=== PATIENT | female | born 1975 | race Caucasian/White ===

== ENCOUNTER 2016-10-26 15:48 | Emergency (ER) | payer OTHER ==
[~2016-10-26] VITALS: Ht 172.7 cm; Wt 99.8 kg
[~2016-10-26 15:48] MED LIST: LEVO150T8 PO; PHEN30TA40
[2016-10-26 17:40] LABS: BASOPHILS # (AUTO) 0.1 /CMM (0.0-0.2); DIFF TOTAL % 100 %; EOSINOPHILS # (AUTO) 0.7 /CMM (0.0-0.7); EOSINOPHILS % (AUTO) 9.3 % (0.0-6.0); HEMATOCRIT 31 % (33-45); HEMOGLOBIN 10.1 g/dL (11.5-14.8); LYMPHOCYTES # (AUTO) 2.3 /CMM (0.8-4.8); LYMPHOCYTES % (AUTO) 28.3 % (20.0-44.0); MEAN CORPUSCULAR HEMOGLOBIN 25 PG (26.0-33.0); MEAN CORPUSCULAR HGB CONC 32 g/dl (31.0-36.0); MEAN CORPUSCULAR VOLUME 77 fL (82-100); MONOCYTES # (AUTO) 0.5 /CMM (0.1-1.30); NEUTROPHILS # (AUTO) 4.4 /CMM (1.8-8.9); NEUTROPHILS % (AUTO) 55.4 % (43.0-81.0); PLATELET COUNT (AUTO) 287 /CMM (150-450); RED BLOOD CELL COUNT(AUTO) 4.07 MIL/uL (4.0-5.2)
[2016-10-26 17:42] LABS: ADD UA MICROSCOPIC YES; KETONES,URINE Trace (NEGATIVE); LEUKOCYTE ESTERASE ,URINE Negative (NEGATIVE); PH,URINE 5.5 (5.0-8.0)
[2016-10-26 17:43] LABS: PREGNANCY TEST URINE QUAL NEGATIVE (NEGATIVE)
[2016-10-26 17:48] LABS: CREATININE 0.6 mg/dL (0.6-1.3); POTASSIUM 4.3 mmol/L (3.5-5.1)
[2016-10-26 17:52] LABS: WBC,URINE 0-2 /HPF (0-3)
[2016-10-26 17:53] LABS: ADD URINE CULTURE YES
[2016-10-26 17:54] LABS: ALBUMIN 3.7 g/dL (3.4-5.0); BILIRUBIN,DIRECT 0.1 mg/dL (0.0-0.2); BILIRUBIN,TOTAL 0.3 mg/dL (0.2-1.0); INDIRECT BILIRUBIN 0.2 mg/dL (0.0-1.1); TOTAL PROTEIN, SERUM 7.5 g/dL (6.4-8.2)
[2016-10-26 17:57] LABS: CALCIUM, SERUM 8.5 mg/dL (8.5-10.1)
[2016-10-26] MEDS ORDERED: ONDANSETRON HCL/PF 4 MG/2 ML VIAL IVP ONE (18:00)
[2016-10-26] MEDS ORDERED: MORPHINE SULFATE INJ 2 MG/ML DISP.SYRIN IV ONE (18:00)
[2016-10-26] MEDS ORDERED: ONDANSETRON HCL/PF 4 MG/2 ML VIAL ONE (18:01)
[2016-10-26] MEDS ORDERED: MORPHINE SULFATE INJ 4 MG/ML DISP.SYRIN ONE (18:01)
[2016-10-26] MEDS ORDERED: KETOROLAC TROMETHAMINE INJ 30 MG/ML VIAL ONE (19:14)
[2016-10-26] MEDS ORDERED: KETOROLAC TROMETHAMINE INJ 30 MG/ML VIAL IV ONE (19:30)
[2016-10-26 19:35] VITALS: BP 124/77
== END 2016-10-26 19:37 | disposition home or self-care (01) ==
LOC: ER 15:56
DX: K57.92 Diverticulitis of intestine, part unspecified, without perforation or abscess without bleeding (principal); F17.200 Nicotine dependence, unspecified, uncomplicated; E11.9 Type 2 diabetes mellitus without complications; E03.9 Hypothyroidism, unspecified; Z88.8 Allergy status to other drugs, medicaments and biological substances
CPT/HCPCS: 36415; 74176; 80048; 80076; 81001; 83690; 84703; 85025; 87086; 96374; 96375; 99285; A4606; J1885; J2270; J2405; Z7610; 81000-TC

== ENCOUNTER 2016-11-25 03:30 | Emergency (ER) | payer OTHER ==
[~2016-11-25] VITALS: Ht 167.6 cm; Wt 68.0 kg
--- NOTE | 2016-11-25 03:40 | NUR ---
To bed 1 a 41 yo female from home bibself with c/o of ear pain for a week and stated there was blood when she cleaned her ears with a qtip about an hour ago [employer]. patient is aox4, ambulatory. no s/s of acute distress. awaiting for md shah.
--- NOTE | 2016-11-25 05:02 | NUR ---
Dr Hui at bedside for eval.
--- NOTE | 2016-11-25 05:11 | NUR ---
Patient discharged to home in stable condition. Written and verbal after care instructions given. Patient verbalizes understanding of instruction. Patient is ambulatory with steady gait.
[2016-11-25 05:14] VITALS: BP 139/100
== END 2016-11-25 05:14 | disposition home or self-care (01) ==
LOC: ER 03:32
DX: H66.91 Otitis media, unspecified, right ear (principal); F17.200 Nicotine dependence, unspecified, uncomplicated; E11.9 Type 2 diabetes mellitus without complications; E03.9 Hypothyroidism, unspecified; Z88.8 Allergy status to other drugs, medicaments and biological substances; Z91.018 Allergy to other foods; Z91.048 Other nonmedicinal substance allergy status
CPT/HCPCS: 99283; A4606; Z7610

== ENCOUNTER 2017-02-13 00:33 | Emergency (ER) | payer OTHER ==
[~2017-02-13] VITALS: Ht 170.2 cm; Wt 103.4 kg
[2017-02-13 00:39] VITALS: BP 126/92
--- NOTE | 2017-02-13 00:44 | NUR ---
STATES "I FEEL BETTER AND I WILL GO HOME WITH MY SON"; DENIES CP/SOB. RESP EVEN AND UNLABORED.
== END 2017-02-13 00:46 | disposition left against medical advice (07) ==
LOC: ER 00:35
DX: Z53.21 Procedure and treatment not carried out due to patient leaving prior to being seen by health care provider (principal)
CPT/HCPCS: A4606; Z7610

== ENCOUNTER 2021-06-27 13:00 | Emergency (ER) | payer MEDICAID ==
[~2021-06-27] VITALS: Ht 170.2 cm; Wt 77.1 kg
--- NOTE | 2021-06-27 13:25 | NUR ---
DR JOHNSON AT THE BEDSIDE
[2021-06-27] MEDS ORDERED: KETOROLAC TROMETHAMINE INJ 30 MG/ML VIAL IV ONE (13:30)
[2021-06-27] MEDS ORDERED: LORAZEPAM 1 MG TABLET PO ONE (13:30)
[2021-06-27] MEDS ORDERED: LORAZEPAM 0.5 MG TABLET ONE (13:32)
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
[2021-06-27] MEDS ORDERED: KETOROLAC TROMETHAMINE 15 MG/ML VIAL ONE (13:33)
--- NOTE | 2021-06-27 13:36 | NUR ---
X-RAY TECH AT THE BEDSIDE
[2021-06-27] MEDS ORDERED: IBUP-1955 PO (14:16)
[2021-06-27 14:30] VITALS: BP 118/85
--- NOTE | 2021-06-27 14:30 | NUR ---
Patient discharged to home in stable condition. Written and verbal after care instructions given. Patient verbalizes understanding of instruction.
== END 2021-06-27 14:31 | disposition home or self-care (01) ==
LOC: ER 13:06
DX: S16.1XXA Strain of muscle, fascia and tendon at neck level, initial encounter (principal); M25.551 Pain in right hip; F41.9 Anxiety disorder, unspecified; E11.9 Type 2 diabetes mellitus without complications; E03.9 Hypothyroidism, unspecified; Z90.49 Acquired absence of other specified parts of digestive tract; Z88.8 Allergy status to other drugs, medicaments and biological substances; Z79.899 Other long term (current) drug therapy; V49.49XA Driver injured in collision with other motor vehicles in traffic accident, initial encounter; Y93.89 Activity, other specified; Y92.413 State road as the place of occurrence of the external cause; Y99.8 Other external cause status
CPT/HCPCS: 71045; 72170; 96374; 99284; J1885

== ENCOUNTER 2025-08-19 01:40 | Inpatient (IN) | payer MEDICAID ==
[~2025-08-19] VITALS: Ht 167.6 cm; Wt 85.7 kg
[~2025-08-19 01:40] MED LIST changes: +IBUP-1955 PO
[2025-08-19] MEDS ORDERED: HALOPERIDOL LACTATE INJ 5 MG/ML VIAL IM ONE (02:30)
[2025-08-19] MEDS ORDERED: LORAZEPAM INJ 2 MG/ML VIAL IM ONE (02:30)
[2025-08-19] MEDS ORDERED: HALOPERIDOL LACTATE INJ 5 MG/ML VIAL ONE (02:36)
[2025-08-19] MEDS ORDERED: LORAZEPAM INJ 2 MG/ML VIAL ONE (02:36)
[2025-08-19 02:43] LABS: PLATELET COUNT (AUTO) 398 K/uL (150-450); RED BLOOD CELL COUNT(AUTO) 4.78 MIL/uL (4.0-5.2); RED CELL DISTRIBUTION WIDTH 17.2 % (11.5-15.0); WHITE BLOOD COUNT (AUTO) 10.0 K/uL (4.3-11.0)
[2025-08-19] MEDS ORDERED: OLANZAPINE 10 MG VIAL IM ONE (02:43)
[2025-08-19] MEDS: OLANZAPINE 10 MG VIAL IM ONE (02:47)
[2025-08-19] MEDS: LORAZEPAM INJ 2 MG/ML VIAL IV ONE (02:47)
[2025-08-19 03:08] LABS: CALCIUM, SERUM 8.9 mg/dL (8.5-10.1); CREATININE 1.0 mg/dL (0.6-1.3); SODIUM SERUM 136 mmol/L (136-145); UREA NITROGEN, BLOOD 7 mg/dL (7-18)
[2025-08-19 03:14] LABS: ALCOHOL, BLOOD < 3 mg/dL (0-10); ASPARTATE AMINOTRANSFERASE 23 U/L (15-37); TOTAL PROTEIN, SERUM 7.8 g/dL (6.4-8.2)
[2025-08-19] MEDS ORDERED: dexaMETHasone SOD PHOSPHATE 4 MG/ML VIAL ONE ×2 (03:59→09:05)
[2025-08-19] MEDS: DEXAMETHASONE SOD PHOSPHATE IV ONE (04:04)
[2025-08-19] MEDS: D5W IV ONE (04:04)
[2025-08-19 04:58] LABS: AMPHETAMINE, URINE NEGATIVE (NEGATIVE); APPEARANCE,URINE CLEAR (CLEAR); BARBITURATE, URINE NEGATIVE (NEGATIVE); BENZODIAZEPINE, URINE NEGATIVE (NEGATIVE); BLOOD, URINE 2+ Ery/uL (NEGATIVE); COCCAINE, URINE NEGATIVE (NEGATIVE); LEUKOCYTE ESTERASE ,URINE NEGATIVE (NEGATIVE); NITRITE, URINE NEGATIVE (NEGATIVE); OPIATE, URINE NEGATIVE (NEGATIVE); UGLUCOSE NEGATIVE (NEGATIVE)
[2025-08-19 05:03] LABS: CANNABINOID, URINE POSITIVE (NEGATIVE)
[2025-08-19 05:21] LABS: PREGNANCY TEST URINE QUAL NEGATIVE (NEGATIVE)
[2025-08-19 05:28] LABS: ADD URINE CULTURE YES
[2025-08-19] MEDS ORDERED: ACETAMINOPHEN 325 MG TABLET PO PRN (07:00)
[2025-08-19] MEDS ORDERED: ONDANSETRON HCL/PF 4 MG/2 ML VIAL IVP PRN (07:00)
[2025-08-19] MEDS ORDERED: LEVOTHYROXINE SODIUM 75 MCG TABLET PO SCH (07:30)
[2025-08-19] MEDS ORDERED: LEVOTHYROXINE INJ 100 MCG VIAL IV SCH (07:30)
[2025-08-19] MEDS: ENOXAPARIN SODIUM 40 MG/0.4 ML DISP.SYRIN SQ SCH (09:00)
[2025-08-19] MEDS ORDERED: DEXTROSE 50%-WATER 50 ML DISP.SYRIN IV PRN (09:00)
[2025-08-19] MEDS ORDERED: ENOXAPARIN SODIUM 40 MG/0.4 ML DISP.SYRIN SQ ONE (09:04)
[2025-08-19] MEDS: dexaMETHasone SOD PHOSPHATE 4 MG/ML VIAL IV SCH (09:17)
[2025-08-19 10:00] VITALS: BP 137/97; TEMP 97.9; O2SAT 99
[2025-08-19] MEDS: POTASSIUM CHLORIDE 20 MEQ TAB.PRT.SR PO SCH (10:29)
[2025-08-19] MEDS: IV NS 0.9% 1,000 ML IV PRN (10:34)
[2025-08-19] MEDS: BLOOD SUGAR DIAGNOSTIC 1 EACH STRIP VI SCH (11:39)
[2025-08-19] MEDS: LEVOTHYROXINE INJ 100 MCG VIAL IV SCH (11:39)
[2025-08-19] MEDS: INSULIN REGULAR, HUMAN 100 UNIT/ML 3 ML VIAL SQ PRN (13:39)
[2025-08-19 20:00] VITALS: BP 126/94; TEMP 98.1; O2SAT 97
[2025-08-19] MEDS: OLANZAPINE ZYDIS 5 MG TAB.RAPDIS PO SCH (20:24)
[2025-08-20] MEDS: OLANZAPINE 10 MG VIAL IM PRN (00:51)
[2025-08-20] MEDS: QUETIAPINE FUMARATE 25 MG TABLET PO ONE (01:29)
[2025-08-20] MEDS: OLANZAPINE ZYDIS 5 MG TAB.RAPDIS PO PRN (03:09)
[2025-08-20 08:00] VITALS: BP 128/82; TEMP 98.1; O2SAT 99
[2025-08-20 12:55] LABS: CALCIUM, SERUM 8.7 mg/dL (8.5-10.1); CREATININE 0.8 mg/dL (0.6-1.3); PHOSPHORUS 3.2 mg/dL (2.5-4.9); SODIUM SERUM 140.0 mmol/L (136-145); UREA NITROGEN, BLOOD 15.0 mg/dL (7-18)
[2025-08-20] MEDS: POTASSIUM CHLORIDE 20 MEQ TAB.PRT.SR PO ONE (13:50)
[2025-08-20 14:07] LABS: PLATELET COUNT (AUTO) 356 K/uL (150-450); RED BLOOD CELL COUNT(AUTO) 4.51 MIL/uL (4.0-5.2); RED CELL DISTRIBUTION WIDTH 16.8 % (11.5-15.0); WHITE BLOOD COUNT (AUTO) 9.6 K/uL (4.3-11.0)
[2025-08-20] MEDS ORDERED: DULA1.5P SQ (18:52)
[2025-08-20] MEDS ORDERED: LEVO175T62 PO (18:52)
[2025-08-20] MEDS ORDERED: CETI10TA14 PO (18:52)
[2025-08-20] MEDS ORDERED: METF500T PO (18:52)
[2025-08-20] MEDS ORDERED: SIMV-49 PO (18:52)
[2025-08-20 20:00] VITALS: BP 122/81; TEMP 97.3; O2SAT 96
[2025-08-20 20:10] VITALS: BP 122/81; TEMP 97.3; O2SAT 96
[2025-08-20] MEDS: *INSULIN REGULAR(HUMULIN R)HUM 100 UNIT/ML VIAL SQ PRN (21:30)
[2025-08-20] MEDS: OLANZAPINE ZYDIS 5 MG TAB.RAPDIS PO SCH (21:30)
[2025-08-21] MEDS: LEVOTHYROXINE SODIUM 75 MCG TABLET PO SCH (06:33)
[2025-08-21] MEDS: LIOTHYRONINE SODIUM (25 MCG) 25 MCG TABLET PO SCH (09:17)
[2025-08-21] MEDS: DIVALPROEX SODIUM 250 MG TABLET.DR PO SCH (13:37)
[2025-08-21 20:00] VITALS: BP 136/86; TEMP 92; TEMP 98; O2SAT 98
[2025-08-22 03:54] VITALS: BP 140/83; TEMP 97.3; O2SAT 98
[2025-08-22 08:00] VITALS: BP_SYST 148; BP_SYST 97; BP_DIAS 56; BP_DIAS 90; TEMP 97.7; TEMP 98.2; O2SAT 96; O2SAT 98
[2025-08-22 16:00] VITALS: BP 126/80; TEMP 98.2; O2SAT 97
[2025-08-22 20:00] VITALS: BP 116/76; TEMP 97.5; O2SAT 98
[2025-08-23 08:00] VITALS: BP 126/85; TEMP 98.1; O2SAT 99
[2025-08-23 16:00] VITALS: BP 147/89; TEMP 97.5; O2SAT 99
[2025-08-23 20:00] VITALS: BP 130/91; TEMP 97.8; O2SAT 99
[2025-08-24 04:00] VITALS: BP 131/88; TEMP 97.8; O2SAT 98
[2025-08-24 08:00] VITALS: BP 135/84; TEMP 97.8; O2SAT 98
[2025-08-24 18:44] VITALS: BP 120/82; TEMP 97.8; O2SAT 98
[2025-08-24 20:00] VITALS: BP 150/101; TEMP 97.5; O2SAT 99
[2025-08-25 08:00] VITALS: BP 133/79; TEMP 98.2; O2SAT 98
[2025-08-25] MEDS ORDERED: DIVA250T4 PO (12:48)
== END 2025-08-25 14:30 | disposition home or self-care (01) | DRG 59 ==
LOC: ER 01:40 → TELE 07:43 → MED 08-21
PROVIDERS: ADMIT Internal Medicine
DX: E03.5 Myxedema coma (principal); G93.40 Encephalopathy, unspecified; F29 Unspecified psychosis not due to a substance or known physiological condition; E03.9 Hypothyroidism, unspecified; E11.9 Type 2 diabetes mellitus without complications; I10 Essential (primary) hypertension; Z79.84 Long term (current) use of oral hypoglycemic drugs; E87.6 Hypokalemia; F39 Unspecified mood [affective] disorder
CPT/HCPCS: 36415; 70450-TC; 80048-TC; 80076-TC; 81001; 82962-TC; 83735-TC; 84100-TC; 84439-TC; 84443-TC; 84481; 84703-TC; 85025-TC; 86376; 87086-TC; 98960; A4223; G0378; G0480; J1100; J1200; J1630; J1650; J1815; J2060; J3490; J7030; J7060